=== PATIENT | male | born 2000 | race African-American/Black ===

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

== ENCOUNTER 2020-02-17 12:26 | Emergency (ER) | payer SELFPAY ==
[~2020-02-17] VITALS: Ht 170.2 cm; Wt 75.3 kg
[2020-02-17 12:42] VITALS: BP 149/70
[2020-02-17] MEDS ORDERED: IBUPROFEN 600 MG TABLET PO ONE (13:00)
--- NOTE | 2020-02-17 13:09 | NUR ---
Patient discharged to home in stable condition. Written and verbal after care instructions given. Patient verbalizes understanding of instruction.
== END 2020-02-17 13:10 | disposition home or self-care (01) ==
LOC: ER 12:32
DX: S40.811A Abrasion of right upper arm, initial encounter (principal); J45.909 Unspecified asthma, uncomplicated; Z88.0 Allergy status to penicillin; V49.59XA Passenger injured in collision with other motor vehicles in traffic accident, initial encounter; Y93.89 Activity, other specified; Y92.488 Other paved roadways as the place of occurrence of the external cause; Y99.8 Other external cause status